=== PATIENT | female | born 1930 | race Caucasian/White ===

== ENCOUNTER 2016-03-24 14:11 | Emergency (ER) | payer OTHER ==
[~2016-03-24] VITALS: Ht 154.9 cm; Wt 56.0 kg
[~2016-03-24 14:11] MED LIST: AMLO5TAB2 PO; ASPI81TA28 PO; CALCTAB5 PO; CHOL100010 PO; CLOP1TAB15 PO; COEN1CAP PO; GLUCTAB7 PO; LISI-461 PO; MECL1TAB42 PO; METH-848 PO; METO50TA7 PO; MULTTAB58 PO; NAPR375T3 PO; POTA20TA13 PO; PRVC/40 PO
[2016-03-24 14:14] VITALS: TEMP 37.3; Ht 154.9 cm; Wt 56.0 kg
[2016-03-24 14:36] VITALS: O2SAT 97
[2016-03-24] MEDS ORDERED: FAMOTIDINE 20 MG TAB PO ONE (14:45)
--- NOTE | 2016-03-24 14:47 | EMERGENCY ROOM VISIT NOTE ---
History Report prepared by Ángel: Farhat Reyna Under the Supervision of: Dr. Lee Ann Laboy M.D. First contact with patient: 14:30 Chief Complaint: CHEST PAIN Stated Complaint: CHEST DISCOMFORT, NAUSEA, DIARRHEA History of Present Illness The patient is a 85 year old female who presents to the Emergency Room with complaints of intermittent chest pain that goes across her chest starting last night. The patient states that she is currently in minimal discomfort. The patient states that she has additionally been having some nausea. The patient states that she has been treated for a UTI with amoxicillin, and she states that last night she was up every 15 minutes to urinate. The patient states that she stopped taking the antibiotics two days ago, however she states that she is still having the same urinary symptoms. The patient denies any shortness of breath, back pain, fever, hematochezia, and she states that the pain does not radiate to her jaw, arm, or back. She additionally states that she takes baby aspirin. Source of History: patient Onset: last night Position: chest Symptom Intensity: minimal Timing: intermittent Associated Symptoms: + nausea, + urinary symptoms, No SOB, No fevers, No hematochezia Review of Systems See HPI for pertinent positives & negatives. A total of 10 systems reviewed and were otherwise negative. Past Medical & Surgical Medical Problems: (1) Dyslipidemia (2) Hypertension (3) Hyperthyroidism Surgical Problems: (1) Status post appendectomy (2) Status post partial thyroidectomy (3) Status post tonsillectomy Family History FH: diabetes mellitus BROTHER FH: heart disease FATHER FH: hypertension MOTHER Social History Smoking Status: Never Smoker Drug Use: none Marital Status: Housing Status: lives with family Occupation Status: retired Current/Historical Medications Scheduled Amlodipine Besylate (Norvasc), 5 MG PO DAILY Aspirin (Aspirin Ec), 81 MG PO DAILY Calcium (Caltrate), 600 MG PO DAILY Cefdinir (Omnicef), 300 MG PO Q12H Cholecalciferol (Vitamin D), 1,000 INTER.UNIT PO DAILY Coenzyme Q10 (Ubidecarenone) (Co Q10), 30 MG PO DAILY Xptxfowmcpp-Urnsiogbxns-Zdw C- (Glucosamine Chondroitin), 1 TAB PO DAILY Lisinopril (Zestril), 10 MG PO DAILY Methimazole (Methimazole), 5 MG PO DAILY Metoprolol Succ (Toprol Xl) (Toprol-Xl), 50 MG PO DAILY Multiple Vitamin (Multivitamin), 1 TAB PO DAILY Naproxen (Naproxen), 375 MG PO DAILY Pravastatin Sod (Pravastatin Sodium), 40 MG PO DAILY Scheduled PRN Meclizine Hcl (Meclizine Hcl), 12.5 MG PO TID PRN for Dizziness or Vertigo Allergies Coded Allergies: No Known Allergies (Unverified , 08/05/13) Physical Exam Vital Signs Date Time Temp Pulse Resp B/P Pulse Ox O2 Delivery O2 Flow Rate FiO2 03/24/16 17:58 93 24 157/88 94 03/24/16 16:00 84 18 104/83 95 Room Air 03/24/16 14:40 86 03/24/16 14:36 97 Room Air 03/24/16 14:29 97 Room Air 03/24/16 14:14 37.3 89 18 158/72 98 Room Air Physical Exam Vital signs reviewed. General: Well-appearing female, in no significant distress. HEENT: No scleral icterus, PERRLA, neck supple. Atraumatic. Cardiovascular: Regular rate and rhythm, no extra sounds. Pulmonary: Clear to auscultation bilaterally, normal work of breathing. Abdomen: Soft, nontender, nondistended, positive bowel sounds. Musculoskeletal: Atraumatic, no peripheral edema. Neurologic: Patient awake alert and oriented x 3, full strength in all 4 extremities. Cranial nerves 2 through 12 grossly intact. Skin: Warm, dry, no rash Medical Decision & Procedures ER Provider Diagnostic Interpretation: X-ray results as stated below per interpretation by me and the radiologist: CHEST ONE VIEW PORTABLE HISTORY: Atypical chest pain COMPARISON: Chest 09/14/2015. FINDINGS: The heart is normal in size. No pleural effusions. No pneumothorax. Stable eventration of the right hemidiaphragm and a linear scarlike density at the right lung base. No new focal lung consolidations to suggest pneumonia. No evidence for pulmonary edema. Right hilar and left paratracheal calcifications persist. Right deviation of the trachea is unchanged. 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 This is stable compared to a 2006 examination. IMPRESSION: No significant change compared to the prior study. No acute process. Electronically signed by: Bonifacio Hui M.D. 03/24/2016 3:13 PM Dictated Date/Time: 03/24/2016 3:11 PM Laboratory Results 03/24/16 15:05 Red Blood Count 3.97, Mean Corpuscular Volume 93.7, Mean Corpuscular Hemoglobin 32.0, Mean Corpuscular Hemoglobin Concent 34.1, Mean Platelet Volume 10.5, Neutrophils (%) (Auto) 81.4, Lymphocytes (%) (Auto) 11.7, Monocytes (%) (Auto) 6.6, Eosinophils (%) (Auto) 0.0, Basophils (%) (Auto) 0.1, Neutrophils # (Auto) 8.79, Lymphocytes # (Auto) 1.26, Monocytes # (Auto) 0.71, Eosinophils # (Auto) 0.00, Basophils # (Auto) 0.01 03/24/16 15:05 Test 03/24/16 15:05 03/24/16 15:08 03/24/16 15:17 White Blood Count 10.79 K/uL (4.8-10.8) Red Blood Count 3.97 M/uL (4.2-5.4) Hemoglobin 12.7 g/dL (12.0-16.0) Hematocrit 37.2 % (37-47) Mean Corpuscular Volume 93.7 fL (80-100) Mean Corpuscular Hemoglobin 32.0 pg (25-34) Mean Corpuscular Hemoglobin Concent 34.1 g/dl (32-36) Platelet Count 222 K/uL (130-400) Mean Platelet Volume 10.5 fL (7.4-10.4) Neutrophils (%) (Auto) 81.4 % Lymphocytes (%) (Auto) 11.7 % Monocytes (%) (Auto) 6.6 % Eosinophils (%) (Auto) 0.0 % Basophils (%) (Auto) 0.1 % Neutrophils # (Auto) 8.79 K/uL (1.4-6.5) Lymphocytes # (Auto) 1.26 K/uL (1.2-3.4) Monocytes # (Auto) 0.71 K/uL (0.11-0.59) Eosinophils # (Auto) 0.00 K/uL (0-0.5) Basophils # (Auto) 0.01 K/uL (0-0.2) RDW Standard Deviation 47.0 fL (36.4-46.3) RDW Coefficient of Variation 13.6 % (11.5-14.5) Immature Granulocyte % (Auto) 0.2 % Immature Granulocyte # (Auto) 0.02 K/uL (0.00-0.02) Anion Gap 11.0 mmol/L (3-11) Est Creatinine Clear Calc Drug Dose 44.6 ml/min Estimated GFR () 89.8 Estimated GFR (Non- 77.4 BUN/Creatinine Ratio 21.0 (10-20) Calcium Level 8.8 mg/dl (8.5-10.1) Magnesium Level 2.2 mg/dl (1.8-2.4) Total Bilirubin 0.5 mg/dl (0.2-1) Direct Bilirubin 0.1 mg/dl (0-0.2) Aspartate Amino Transf (AST/SGOT) 14 U/L (15-37) Alanine Aminotransferase (ALT/SGPT) 18 U/L (12-78) Alkaline Phosphatase 66 U/L (45-117) Total Creatine Kinase 66 U/L (26-192) Creatine Kinase MB < 0.5 ng/ml (0.5-3.6) Creatine Kinase MB Ratio (0-3.0) Total Protein 6.9 gm/dl (6.4-8.2) Albumin 3.2 gm/dl (3.4-5.0) Lipase 56 U/L (73-393) Bedside Troponin I 0.000 ng/ml (0-0.045) Urine Color DK YELLOW Urine Appearance TURBID (CLEAR) Urine pH >= 9.0 (4.5-7.5) Urine Specific [place] 1.018 (1.000-1.030) Urine Protein 2+ (NEG) Urine Glucose (UA) NEG (NEG) Urine Ketones TRACE (NEG) Urine Occult Blood TRACE (NEG) Urine Nitrite POS (NEG) Urine Bilirubin NEG (NEG) Urine Urobilinogen NEG (NEG) Urine Leukocyte Esterase LARGE (NEG) Urine WBC (Auto) >30 /hpf (0-5) Urine RBC (Auto) 0-4 /hpf (0-4) Urine Hyaline Casts (Auto) 0 /lpf (0-5) Urine Epithelial Cells (Auto) >30 /lpf (0-5) Urine Bacteria (Auto) 4+ (NEG) Urine Crystals TRIPLE PHOSPHATE Urine Pathogenic Casts /lpf (0) Laboratory results per my review. Medications Administered Medications (Trade) Dose Ordered Sig/Carmen Route Start Time Stop Time Status Last Admin Dose Admin Famotidine (Pepcid Tab) 20 mg NOW ONCE PO 03/24/16 14:45 03/24/16 14:46 DC 03/24/16 15:13 20 MG Ceftriaxone Sodium (Rocephin Inj) 1 gm NOW STAT IV 03/24/16 16:30 03/24/16 16:31 DC 03/24/16 17:08 1 GM ECG Indication: chest pain Rate (beats per minute): 88 Rhythm: normal sinus Findings: LAFB, PVC, RBBB, no acute ischemic change, other (LVH, and repolarization abnormalities) ED Course 1430: Past medical records reviewed. The patient was evaluated in room B8. A complete history and physical examination was performed. 1445: Pepcid Tab 20mg PO 1630: Rocephin Inj 1gm IV 1635: Upon reevaluation, the patient appeared to have improvement of her symptoms. I discussed findings with her. She verbalized agreement of the treatment plan. She was discharged home. Medical Decision Differential diagnoses include: Acute coronary syndrome, pulmonary embolus, aortic dissection, musculoskeletal pain, pneumonia, pleural effusion, pneumothorax, and persistent UTI This patient was evaluated and appeared to be in no significant distress. IV access was obtained and laboratory work was drawn. Patient was placed on the monitor technician. Patient was given Pepcid 20 mg orally. She had taken aspirin earlier in the day. EKG reveals chronic changes, no evidence of acute ischemia. Laboratory work reveals negative cardiac enzymes. Patient was feeling improved. Urinalysis is significant for infection. Patient was given 1 g of IV ceftriaxone. She was discharged on Omnicef 300 mg twice daily for 7 days. Patient was asked to begin Pepcid twice daily. She will start her aspirin every other day to minimize the gastritis. Patient seemed happy with the plan and will follow-up with her primary care provider this week. She will return to the ER for worsening of symptoms or any medical concerns. Impression Primary Impression: Urinary tract infection Additional Impressions: Gastritis, aspirin therapy Scribe Attestation The scribe's documentation has been prepared under my direction and personally reviewed by me in its entirety. I confirm that the note above accurately reflects all work, treatment, procedures, and medical decision making performed by me. Departure Information Dispostion Home / Self-Care Prescriptions Cefdinir (Omnicef) 300 Mg Cap 300 MG PO Q12H for 7 Days, #14 CAP Prov: Lee Ann Laboy M.D. 03/24/16 Referrals Silva Verduzco M.D. (PCP) Forms HOME CARE DOCUMENTATION FORM, IMPORTANT VISIT INFORMATION Patient Instructions A Signature Page, My [facility] Additional Instructions Diagnosis: Urinary tract infection, gastritis, aspirin therapy Pepcid 20 mg twice daily. Omnicef 300 mg twice daily for 7 days. Take your aspirin 81 mg every other day. Drink plenty of clear fluids. Follow-up with your physician this week for reevaluation. Return to the ER for worsening of symptoms or any medical concerns.
--- NOTE | 2016-03-24 15:15 | DIAGNOSTIC IMAGING REPORT ---
CHEST ONE VIEW PORTABLE HISTORY: Atypical chest pain COMPARISON: Chest 09/14/2015. FINDINGS: The heart is normal in size. No pleural effusions. No pneumothorax. Stable eventration of the right hemidiaphragm and a linear scarlike density at the right lung base. No new focal lung consolidations to suggest pneumonia. No evidence for pulmonary edema. Right hilar and left paratracheal calcifications persist. Right deviation of the trachea is unchanged. 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 This is stable compared to a 2006 examination. IMPRESSION: No significant change compared to the prior study. No acute process. Electronically signed by: Bonifacio Hui M.D. 03/24/2016 3:13 PM Dictated Date/Time: 03/24/2016 3:11 PM
[2016-03-24 15:24] LABS: BASO % 0.1 %; BASO ABS # 0.01 K/uL (0-0.2); COMPLETE YES; HEMATOCRIT 37.2 % (37-47); IG% 0.2 %; LYMPH % 11.7 %; LYMPH ABS # 1.26 K/uL (1.2-3.4); MEAN CELL VOLUME 93.7 fL (80-100); MEAN CORPUSCULAR HGB CONC 34.1 g/dl (32-36); MEAN PLATELET VOLUME 10.5 fL (7.4-10.4); MONO % 6.6 %; NEUT % 81.4 %; PLATELET COUNT 222 K/uL (130-400); RED BLOOD COUNT 3.97 M/uL (4.2-5.4); WHITE BLOOD COUNT 10.79 K/uL (4.8-10.8)
[2016-03-24 15:32] LABS: ALT/SGPT 18 U/L (12-78); BLOOD UREA NITROGEN 15 mg/dl (7-18); CALCIUM 8.8 mg/dl (8.5-10.1); CARBON DIOXIDE 27 mmol/L (21-32); CHLORIDE 104 mmol/L (98-107); CREATININE 0.72 mg/dl (0.60-1.20); GLUCOSE 132 mg/dl (70-99); MAGNESIUM 2.2 mg/dl (1.8-2.4); POTASSIUM 3.9 mmol/L (3.5-5.1); SODIUM 142 mmol/L (136-145)
[2016-03-24 15:35] LABS: ALKALINE PHOSPHATASE 66 U/L (45-117); AST/SGOT 14 U/L (15-37)
[2016-03-24 15:37] LABS: URINE APPEARANCE TURBID (CLEAR); URINE BILIRUBIN NEG (NEG); URINE COLOR DK YELLOW; URINE EPITHELIAL CELL AUTO >30 /lpf (0-5); URINE NITRITE POS (NEG); URINE PH >= 9.0 (4.5-7.5); URINE SPECIFIC GRAVITY 1.018 (1.000-1.030); UROBILINOGEN NEG (NEG); ZZUR CULT IF INDIC CLEAN CATCH YES
[2016-03-24 15:40] LABS: MANUAL MICROSCOPIC REQUIRED? NO; REVIEW REQ? YES
[2016-03-24 15:52] LABS: SULFASALICYLIC ACID POS (NEG)
[2016-03-24] MEDS ORDERED: CEFTRIAXONE SOD INJ 1 GM ADDVIAL IV STA (16:30)
[2016-03-24] MEDS ORDERED: CEFD1CAP14 PO (16:49)
[2016-03-24 17:58] VITALS: BP 157/88; PULSE 93; O2SAT 94
--- NOTE | 2016-03-26 13:43 | Pharmacy Progress Note ---
ED Pharmacist Culture FollowUp Date of Service: Mar 26, 2016. Patient was sent home with a prescription for Omnicef 300mg PO BID x 7 days, which should cover the Proteus mirabilis growing from the patient's URINE culture from 03/24/16. No action required as this is appropriate therapy for uncomplicated UTI based on sensitivities.
== END 2016-03-24 17:58 | disposition home or self-care (01) ==
LOC: C.EDB 14:12
DX: N39.0 Urinary tract infection, site not specified (principal); K29.70 Gastritis, unspecified, without bleeding; Z79.82 Long term (current) use of aspirin; E78.5 Hyperlipidemia, unspecified; I10 Essential (primary) hypertension; I44.4 Left anterior fascicular block; I49.3 Ventricular premature depolarization; I45.10 Unspecified right bundle-branch block

== ENCOUNTER 2016-10-01 10:49 | Emergency (ER) | payer OTHER ==
[~2016-10-01] VITALS: Ht 154.9 cm; Wt 55.0 kg
[~2016-10-01 10:49] MED LIST changes: -CLOP1TAB15 PO; -POTA20TA13 PO
[2016-10-01 10:52] VITALS: TEMP 36.7; Ht 154.9 cm; Wt 55.0 kg
[2016-10-01] MEDS ORDERED: CALC600T37 PO (11:05)
[2016-10-01] MEDS ORDERED: CZR50 PO (11:05)
[2016-10-01] MEDS ORDERED: POTA20TA13 PO (11:05)
[2016-10-01] MEDS ORDERED: METOPROLOL SUCC 50MG EXT REL TAB PO STA (11:15)
[2016-10-01] MEDS ORDERED: LOSARTAN POTASSIUM 50 MG TAB PO STA (11:15)
[2016-10-01 11:26] LABS: BASO % 0.3 %; BASO ABS # 0.02 K/uL (0-0.2); COMPLETE YES; EOS % 1.4 %; HEMATOCRIT 46.7 % (37-47); IG% 0.1 %; LYMPH % 42.1 %; LYMPH ABS # 3.06 K/uL (1.2-3.4); MEAN CELL VOLUME 93.2 fL (80-100); MEAN CORPUSCULAR HEMOGLOBIN 30.7 pg (25-34); MEAN PLATELET VOLUME 10.3 fL (7.4-10.4); MONO % 8.5 %; NEUT % 47.6 %; PLATELET COUNT 305 K/uL (130-400); RED BLOOD COUNT 5.01 M/uL (4.2-5.4); WHITE BLOOD COUNT 7.26 K/uL (4.8-10.8)
--- NOTE | 2016-10-01 11:30 | EMERGENCY ROOM VISIT NOTE ---
History Report prepared by Ángel: Vero Bucsh Under the Supervision of: Dr. Lee Ann Laboy M.D. First contact with patient: 10:57 Chief Complaint: HYPERTENSION Stated Complaint: HYPERTENSION History of Present Illness The patient is a 85 year old female who presents to the Emergency Room with complaints of an episode of hypertension occurring this morning. The patient was having a yearly routine home visit by a home health nurse. During the vitals exam the nurse recorded a blood pressure of 200/100. The patient states that she is on blood pressure medication for her hypertension. She has been experiencing trouble remembering to take her medications. It has been about 4 days since she last took them. The patient lives with her son but will not let him help her with her medications. She states that when she does take her medications she uses water with them and not food. The patient denies a headache , nausea, chest pain shortness of breath or urinary symptoms. She does have a history of a stroke. Source of History: patient Onset: this morning Position: other (global) Quality: other (hypertension) Timing: other (episode) Associated Symptoms: No headache, No chest pain, No SOB, No nausea, No urinary symptoms Review of Systems See HPI for pertinent positives & negatives. A total of 10 systems reviewed and were otherwise negative. Past Medical & Surgical Medical Problems: (1) Dyslipidemia (2) Hypertension (3) Hyperthyroidism Surgical Problems: (1) Status post appendectomy (2) Status post partial thyroidectomy (3) Status post tonsillectomy Family History FH: diabetes mellitus BROTHER FH: heart disease FATHER FH: hypertension MOTHER Social History Smoking Status: Never Smoker Drug Use: none Marital Status: Housing Status: lives with family Occupation Status: retired Current/Historical Medications Scheduled Amlodipine Besylate (Norvasc), 5 MG PO DAILY Aspirin (Aspirin Ec), 81 MG PO DAILY Calcium (Calcium), 600 MG PO DAILY Cholecalciferol (Vitamin D), 1,000 INTER.UNIT PO DAILY Coenzyme Q10 (Ubidecarenone) (Co Q10), 30 MG PO DAILY Crtzwlgfjmc-Cftgtiubyli-Vdo C- (Glucosamine Chondroitin), 1 TAB PO DAILY Losartan Potassium (Losartan Potassium), 50 MG PO DAILY Methimazole (Methimazole), 5 MG PO DAILY Metoprolol Succ (Toprol Xl) (Toprol-Xl), 50 MG PO DAILY Multiple Vitamin (Multivitamin), 1 TAB PO DAILY Naproxen (Naproxen), 375 MG PO DAILY Potassium Chloride Microencaps (Potassium Chloride Er), 20 MEQ PO DAILY Pravastatin Sod (Pravastatin Sodium), 40 MG PO DAILY Scheduled PRN Meclizine Hcl (Meclizine Hcl), 12.5 MG PO TID PRN for Dizziness or Vertigo Allergies Coded Allergies: No Known Allergies (Unverified , 10/01/16) Physical Exam Vital Signs Date Time Temp Pulse Resp B/P (MAP) Pulse Ox O2 Delivery O2 Flow Rate FiO2 10/01/16 13:49 53 18 166/83 94 Room Air 10/01/16 13:10 66 18 206/88 95 Room Air 10/01/16 12:32 195/93 10/01/16 12:00 73 16 202/103 96 Room Air 10/01/16 11:15 79 10/01/16 10:52 36.7 82 18 246/108 95 Room Air Physical Exam Vital signs reviewed. General: Well-appearing female, in no significant distress. Noted to be remarkably hypertensive. HEENT: No scleral icterus, PERRLA, neck supple. Atraumatic. Cardiovascular: Regular rate and rhythm, no extra sounds. Pulmonary: Clear to auscultation bilaterally, normal work of breathing. Abdomen: Soft, nontender, nondistended, positive bowel sounds. Musculoskeletal: Atraumatic, no peripheral edema. Neurologic: Patient awake alert and oriented x 3, full strength in all 4 extremities. Cranial nerves 2 through 12 grossly intact. Skin: Warm, dry, no rash Medical Decision & Procedures Laboratory Results 10/01/16 11:07 Red Blood Count 5.01, Mean Corpuscular Volume 93.2, Mean Corpuscular Hemoglobin 30.7, Mean Corpuscular Hemoglobin Concent 33.0, Mean Platelet Volume 10.3, Neutrophils (%) (Auto) 47.6, Lymphocytes (%) (Auto) 42.1, Monocytes (%) (Auto) 8.5, Eosinophils (%) (Auto) 1.4, Basophils (%) (Auto) 0.3, Neutrophils # (Auto) 3.45, Lymphocytes # (Auto) 3.06, Monocytes # (Auto) 0.62, Eosinophils # (Auto) 0.10, Basophils # (Auto) 0.02 7/18/17 11:07 Test 10/01/16 11:07 White Blood Count 7.26 K/uL (4.8-10.8) Red Blood Count 5.01 M/uL (4.2-5.4) Hemoglobin 15.4 g/dL (12.0-16.0) Hematocrit 46.7 % (37-47) Mean Corpuscular Volume 93.2 fL (80-100) Mean Corpuscular Hemoglobin 30.7 pg (25-34) Mean Corpuscular Hemoglobin Concent 33.0 g/dl (32-36) Platelet Count 305 K/uL (130-400) Mean Platelet Volume 10.3 fL (7.4-10.4) Neutrophils (%) (Auto) 47.6 % Lymphocytes (%) (Auto) 42.1 % Monocytes (%) (Auto) 8.5 % Eosinophils (%) (Auto) 1.4 % Basophils (%) (Auto) 0.3 % Neutrophils # (Auto) 3.45 K/uL (1.4-6.5) Lymphocytes # (Auto) 3.06 K/uL (1.2-3.4) Monocytes # (Auto) 0.62 K/uL (0.11-0.59) Eosinophils # (Auto) 0.10 K/uL (0-0.5) Basophils # (Auto) 0.02 K/uL (0-0.2) RDW Standard Deviation 47.1 fL (36.4-46.3) RDW Coefficient of Variation 13.8 % (11.5-14.5) Immature Granulocyte % (Auto) 0.1 % Immature Granulocyte # (Auto) 0.01 K/uL (0.00-0.02) Urine Color YELLOW Urine Appearance CLEAR (CLEAR) Urine pH 6.5 (4.5-7.5) Urine Specific [place] 1.011 (1.000-1.030) Urine Protein TRACE (NEG) Urine Glucose (UA) NEG (NEG) Urine Ketones NEG (NEG) Urine Occult Blood TRACE (NEG) Urine Nitrite NEG (NEG) Urine Bilirubin NEG (NEG) Urine Urobilinogen NEG (NEG) Urine Leukocyte Esterase SMALL (NEG) Urine WBC (Auto) 1-5 /hpf (0-5) Urine RBC (Auto) 0-4 /hpf (0-4) Urine Hyaline Casts (Auto) 0 /lpf (0-5) Urine Epithelial Cells (Auto) >30 /lpf (0-5) Urine Bacteria (Auto) NEG (NEG) Anion Gap 6.0 mmol/L (3-11) Est Creatinine Clear Calc Drug Dose 43.4 ml/min Estimated GFR () 86.8 Estimated GFR (Non- 74.9 BUN/Creatinine Ratio 24.3 (10-20) Calcium Level 9.4 mg/dl (8.5-10.1) Magnesium Level 2.3 mg/dl (1.8-2.4) Total Bilirubin 0.5 mg/dl (0.2-1) Direct Bilirubin 0.1 mg/dl (0-0.2) Aspartate Amino Transf (AST/SGOT) 19 U/L (15-37) Alanine Aminotransferase (ALT/SGPT) 29 U/L (12-78) Alkaline Phosphatase 72 U/L (45-117) Total Creatine Kinase 85 U/L (26-192) Creatine Kinase MB 1.2 ng/ml (0.5-3.6) Creatine Kinase MB Ratio 1.4 (0-3.0) Total Protein 7.9 gm/dl (6.4-8.2) Albumin 4.0 gm/dl (3.4-5.0) Laboratory results per my review. Medications Administered Medications (Trade) Dose Ordered Sig/Carmen Route Start Time Stop Time Status Last Admin Dose Admin Metoprolol Succinate (Toprol Xl Tab) 50 mg NOW STAT PO 10/01/16 11:15 10/01/16 11:19 DC 10/01/16 11:27 50 MG Losartan Potassium (coZAAR TAB) 50 mg NOW STAT PO 10/01/16 11:15 10/01/16 11:19 DC 10/01/16 11:30 50 MG Amlodipine Besylate (Norvasc Tab) 5 mg NOW ONCE PO 10/01/16 11:45 10/01/16 11:46 DC 10/01/16 11:55 5 MG ECG Indication: other (hypertension) Rate (beats per minute): 82 Rhythm: sinus rhythm Findings: 1st degree AV block, RBBB, no acute ischemic change, no ectopy, other (left anterior fascicular block, repolarization abnormal anteriorly ) ED Course 1109: Past medical records reviewed. The patient was evaluated in room C4. A complete history and physical examination was performed. 1115: coZAAR Tab 50 mg PO, Toprol XI Tab 50 mg PO. 1145: Norvasc Tab 5 mg PO, Zestril Tab 10 mg PO. 1307: Upon reevaluation, the patient appeared to have improvement of her symptoms. I discussed findings with the patient and her son. They verbalized agreement of the treatment plan. She was discharged home. Medical Decision The patient is a 85 year old female who presents to the ED with complaints of hypertensive episode. Differentials include medication omission, hypertension, renal failure, aortic dissection, stroke. Medication Reconciliation: I attest that I have personally reviewed the patient' s current medication list. Blood Pressure Screening: Patient was found to have an elevated blood pressure that is situational and was referred to their primary doctor for recheck and further treatment. This patient was evaluated and appeared to be in no significant distress. Patient has no complaints at this time. She was medicated with her home regimen of Toprol-XL, Cozaar and Norvasc. Patient's laboratory work is unrevealing. EKG reveals no his acute acute ischemia. Patient has a history of noncompliance with her medications. We did have a long discussion with the patient and her son regarding the assistance that will be needed to monitor her medications. The patient seems happy with the plan for follow-up with the PCP. She will return to the ER for worsening of symptoms or any medical concerns. Impression Primary Impression: Hypertension Additional Impression: Noncompliance with medications Scribe Attestation The scribe's documentation has been prepared under my direction and personally reviewed by me in its entirety. I confirm that the note above accurately reflects all work, treatment, procedures, and medical decision making performed by me. Departure Information Dispostion Home / Self-Care Referrals Silva Verduzco M.D. (PCP) Forms HOME CARE DOCUMENTATION FORM, IMPORTANT VISIT INFORMATION, WORK / SCHOOL INSTRUCTIONS Patient Instructions My [facility] Additional Instructions Diagnosis: Hypertension, Medication non-compliance Cozaar 50 mg once daily Norvasc 5 mg once daily Toprol-XL 50 mg once daily Please allow your son to assist with medication management. Follow up with your doctor this week for BP recheck. Problem Qualifiers
[2016-10-01 11:32] LABS: URINE APPEARANCE CLEAR (CLEAR); URINE BILIRUBIN NEG (NEG); URINE COLOR YELLOW; URINE EPITHELIAL CELL AUTO >30 /lpf (0-5); URINE NITRITE NEG (NEG); URINE PH 6.5 (4.5-7.5); URINE SPECIFIC GRAVITY 1.011 (1.000-1.030); UROBILINOGEN NEG (NEG); ZZUR CULT IF INDIC CLEAN CATCH NO
[2016-10-01 11:37] LABS: MANUAL MICROSCOPIC REQUIRED? NO; REVIEW REQ? NO
[2016-10-01 11:43] LABS: BUN/CREATININE RATIO 24.3 (10-20); CALCIUM 9.4 mg/dl (8.5-10.1); CREATININE 0.74 mg/dl (0.60-1.20); MAGNESIUM 2.3 mg/dl (1.8-2.4); POTASSIUM 3.9 mmol/L (3.5-5.1)
[2016-10-01] MEDS: LISINOPRIL 5 MG TAB PO ONE ×2 (11:45→11:55)
[2016-10-01] MEDS ORDERED: AMLODIPINE BESYLATE 5 MG TAB PO ONE (11:45)
[2016-10-01 11:48] LABS: CKMB/CK RATIO 1.4 (0-3.0)
[2016-10-01 13:49] VITALS: BP 166/83; PULSE 53; O2SAT 94
== END 2016-10-01 14:36 | disposition home or self-care (01) ==
LOC: C.EDB 10:50 → C.EDC 14:36
DX: I10 Essential (primary) hypertension (principal); Z91.14 Patient's other noncompliance with medication regimen; Z86.73 Personal history of transient ischemic attack (TIA), and cerebral infarction without residual deficits; E78.5 Hyperlipidemia, unspecified; E05.90 Thyrotoxicosis, unspecified without thyrotoxic crisis or storm; E89.0 Postprocedural hypothyroidism; Z83.3 Family history of diabetes mellitus; Z82.49 Family history of ischemic heart disease and other diseases of the circulatory system; Z79.82 Long term (current) use of aspirin; Z79.899 Other long term (current) drug therapy

== ENCOUNTER 2017-01-29 11:31 | Day surgery (SDC) | payer OTHER ==
[2017-01-28 18:27] VITALS: BMI 22.0
[~2017-01-29] VITALS: Ht 157.5 cm; Wt 55.3 kg
[~2017-01-29 11:31] MED LIST changes: +ACET-1311 PO; -ASPI81TA28 PO; +ATROPINE SULFATE 0.1 MG/ML 5ML SYR IV PRN; +CALC600T37 PO; -CALCTAB5 PO; +CFT250 PO; +CZR50 PO; +EpHEDrine SULFATE INJ 50 MG/ML AMP IV PRN; +FENTANYL CITRATE INJ 50 MCG/1 ML 2 ML VIAL IV PRN; +HYDROmorphone INJ 1 MG/ML SYR IV PRN; +LABETALOL HCL IV 5 MG/ML 20ML IV PRN; +LACTATED RINGER'S 1000ML 1,000 ML IV SCH; -LISI-461 PO; -MECL1TAB42 PO; -NAPR375T3 PO; +ONDANSETRON INJ 2 MG/ML 2 ML VIAL IV PRN; +PHENYLEPHRINE 100MCG/ML 5ML SYR IV PRN; +POTA20TA13 PO; +ULT50X PO
[2017-01-29 12:41] VITALS: BP 183/79; PULSE 71; TEMP 36.7; O2SAT 96; Ht 157.5 cm; Wt 55.3 kg
--- NOTE | 2017-01-29 13:00 | History and Physical ---
History & Physical Date Jan 29, 2017. Chief Complaint proteus uti and ureteral and renal stones left History of Present Illness The patient is a 86 year old female where for treatment of left ureteral stones. She presented with colic and proteus uti and was urgently stented and sent home on cipro. Today she is complaining of new diarrhea. It is stool colored not clear. Past Medical/Surgical History Medical Problems: (1) Dyslipidemia (2) Hypertension (3) Hyperthyroidism Surgical Problems: (1) Status post appendectomy (2) Status post partial thyroidectomy (3) Status post tonsillectomy Additional History Hepatic Disease: No (hypothyroid) Hypertension: Yes Infectious Diseases: Yes Allergies Coded Allergies: No Known Allergies (Unverified , 01/28/17) Home Medications Scheduled Amlodipine Besylate (Norvasc), 5 MG PO DAILY Calcium (Calcium), 600 MG PO DAILY Cefuroxime Axetil (Cefuroxime Axetil), 250 MG PO BID Cholecalciferol (Vitamin D), 1,000 INTER.UNIT PO DAILY Coenzyme Q10 (Ubidecarenone) (Co Q10), 30 MG PO DAILY Vhnovqprary-Mdlcaoixkho-Qcm C- (Glucosamine Chondroitin), 1 TAB PO DAILY Losartan Potassium (Losartan Potassium), 50 MG PO DAILY Methimazole (Methimazole), 5 MG PO DAILY Metoprolol Succ (Toprol Xl) (Toprol-Xl), 50 MG PO DAILY Multiple Vitamin (Multivitamin), 1 TAB PO DAILY Potassium Chloride Microencaps (Potassium Chloride Er), 20 MEQ PO DAILY Pravastatin Sod (Pravastatin Sodium), 40 MG PO DAILY Scheduled PRN Acetaminophen (Tylenol), 325 MG PO Q4 PRN for Pain Tramadol HCl (Tramadol HCl), 50 MG PO Q6H PRN for Pain Physical Examination Skin: warm/dry, no rash Eyes: normal inspection Neck: supple, trachea midline Respiratory/Chest: lungs clear, normal breath sounds, no respiratory distress Cardiovascular: regular rate, rhythm, no edema Abdomen / GI: normal bowel sounds, non tender Extremities: normal inspection Neurologic/Psych: no motor/sensory deficits, alert, oriented x 3 Diagnosis left ureteral and renal stones with proteus uti plan left uscope laser litho and removal of both ureteral and renal stones then stent exchange or removal. 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
[2017-01-29] MEDS ORDERED: FENTANYL CITRATE INJ 50 MCG/1 ML 2 ML VIAL ONE (13:19)
[2017-01-29] MEDS ORDERED: PROPOFOL IV EMULSION 10 MG/ML 20 ML VIAL IV ONE (13:33)
[2017-01-29] MEDS ORDERED: EpHEDrine SULFATE 50MG/5ML SYR ONE (13:33)
[2017-01-29] MEDS ORDERED: LIDOCAINE HCL 2% 2 ML VIAL (20MG/ML) ONE (13:33)
[2017-01-29] MEDS ORDERED: ONDANSETRON INJ 2 MG/ML 2 ML VIAL ONE (13:33)
[2017-01-29] MEDS ORDERED: CEFTRIAXONE SOD INJ 1000 MG in DEXTROSE 5% 50ML IV SCH (14:00)
[2017-01-29] MEDS ORDERED: BELLADONNA/OPIUM SUPP 60 MG SUPP PR ONE (14:18)
--- NOTE | 2017-01-29 14:46 | [facility] Operative Report ---
Operative Report Operative Date Jan 29, 2017. Pre-Operative Diagnosis Left ureteral and renal stones Post-Operative Diagnosis Same Procedure(s) Performed Cystoscopy, Left Ureteroscopy, Laser Lithotripsy - Basket Stone Extraction; Stent Exchange Surgeon Dr Mckeon [employer] Surgeon(s) none Estimated Blood Loss 1 cc Findings radio-opaque left distal ureteral stone, stage 4 uterine prolapse Specimens A: Left ureteral and renal stone fragments for chemical analysis Drains 6 fr 22 centimeter double j stent Anesthesia LMA Complication(s) None Disposition Recovery Room / PACU Indications UTI with obstructing left distal ureteral stone and a few left renal stones. She was urgently stented last week and now presents for stone removal Description of Procedure Patient was given general LMA anesthesia and placed in lithotomy position. Her genitals were prepped and draped in sterile fashion. She has red discoloration of the labia and skin creases. Time out held with team. I placed 2 raytec sponges into vagina to reduce her complete prolapse. I placed a 21 fr rigid cystoscope to bladder. The urethra is unremarkable. The UOs are laterally displaced. There is some cloudy debris on the stent. I grasped stent tip and withdrew it to meatus. I placed a stiff wire up left ureter to the kidney. I removed the stent and found it to be intact. I placed a flexible ureteroscope into the distal ureter next to the stiff wire and found her stone in the distal ureter. It has a cream colored soft leading edge and a hard dark brown core. I used a 200 micron holmium laser to fragment the stone into about a dozen pieces. Many pieces rinsed down to the bladder. I used a 2.4 fr zero tip basket for the remaining fragment removal clearing the ureter. I then placed the scope up to the kidney and lasered the larger eenal stone into pieces. it too has a cream colored soft outer portion which turns to dust with laser and a hard core which was fragmented and basket extracted with stent. I removed scope again making sure ureter is clear. I placed a 24 centimeter 6 Fr double J stent easily. There is brisk efflux after placement. I left bladder empty and concluded case. I removed both raytec sponges from vagina. I placed a belladonna and opium suppository for post-op pain. She transferred to recovery under my escort, in stable condition. 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 Any exceptions are noted below.
--- NOTE | 2017-01-29 14:48 | DIAGNOSTIC IMAGING REPORT ---
INTRAOPERATIVE KUB 3 VIEWS CLINICAL HISTORY: LEFT LITHO/LASER/STENT PLACEMENT COMPARISON STUDY: No previous studies for comparison. FINDINGS: 3 intraoperative fluoroscopic spot images are provided for interpretation. 17 seconds of fluoroscopic time was utilized. These images demonstrate a left-sided nephroureteral stent. There are multiple pelvic calcifications consistent with calcified uterine fibroids. IMPRESSION: Left-sided nephroureteral stent. Electronically signed by: Gagandeep Blanchard M.D. 01/29/2017 2:46 PM Dictated Date/Time: 01/29/2017 2:45 PM
--- NOTE | 2017-01-29 14:49 | Discharge Instructions ---
Discharge Instructions Date of Service Jan 29, 2017. Admission Reason for Admission: Left Kidney and ureteral Stone Discharge Discharge Diagnosis / Problem: left ureteral and renal stones and proteus uti Discharge Goals Goal(s): Decrease discomfort, Improve disease control Activity Recommendations Activity Limitations: resume your previous activity Lifting Limitations: none Exercise/Sports Limitations: as tolerated Shower/Bathe: no limitations Driving or Machine Use: resume 1 day after discharge . Instructions / Follow-Up Instructions / Follow-Up stent removal in [facility] urology clinic in one week Current Hospital Diet Patient's current hospital diet: Discharge Diet Recommended Diet: Regular Diet Procedures Procedures Performed: Cystoscopy, Left Ureteroscopy, Laser Lithotripsy - Basket Stone Extraction; Stent Exchange Pending Studies Studies pending at discharge: no Medical Emergencies . Who to Call and When: Medical Emergencies: If at any time you feel your situation is an emergency, please call 911 immediately. . Non-Emergent Contact Non-Emergency issues call your: Urologist ([phone]) Call Non-Emergent contact if: temperature is above 100.5, your pain is not controlled . . "Provider Documentation" section prepared by Patti Mckeon. . VTE Core Measure Inpt VTE Proph given/why not?: SCD's
--- NOTE | 2017-01-29 14:52 | Anesthesiology Progress Note ---
Anesthesia Post Op Note Date & Time Jan 29, 2017 at 14:52 Vital Signs Pain Intensity: 0 Vital Signs Past 12 Hours Date Time Temp Pulse Resp B/P (MAP) Pulse Ox O2 Delivery O2 Flow Rate FiO2 01/29/17 14:40 71 19 155/74 99 Oxymask 10 01/29/17 14:31 36.6 80 23 181/67 100 Oxymask 10 01/29/17 12:41 36.7 71 16 183/79 (113) 96 Room Air Notes Mental Status: alert / awake / arousable, participated in evaluation Pt Amnestic to Procedure: Yes Nausea / Vomiting: adequately controlled Pain: adequately controlled Airway Patency, RR, SpO2: stable & adequate BP & HR: stable & adequate Hydration State: stable & adequate Anesthetic Complications: no major complications apparent
[2017-01-29 15:15] VITALS: BP 169/77; PULSE 64; TEMP 36.2; O2SAT 98
[2017-01-29 15:45] VITALS: BP 160/72; PULSE 78; O2SAT 95
[2017-01-29] MEDS ORDERED: FLUCONAZOLE 100 MG TAB PO ONE (16:00)
[2017-01-29 16:15] VITALS: BP 161/74; PULSE 77; TEMP 36.5; O2SAT 94
== END 2017-01-29 16:25 | disposition home or self-care (01) ==
LOC: C.ACU 11:31
PROVIDERS: ATTEND Urology
DX: N20.2 Calculus of kidney with calculus of ureter (principal); N81.3 Complete uterovaginal prolapse; I10 Essential (primary) hypertension; E78.5 Hyperlipidemia, unspecified; E89.0 Postprocedural hypothyroidism; Z79.899 Other long term (current) drug therapy